=== PATIENT | female | born 1980 | race Caucasian/White ===

== ENCOUNTER 2016-12-01 08:14 | Emergency (ER) | payer OTHER ==
[~2016-12-01] VITALS: Ht 167.6 cm; Wt 106.6 kg
[~2016-12-01 08:14] MED LIST: METOPROLOL SUCC25 MG PO
[2016-12-01] MEDS ORDERED: METOPROLOL SUCC25 MG PO (08:41)
--- NOTE | 2016-12-01 20:33 | EKG ---
[facility] [address] [facility] [place] [address] Signed Normal sinus rhythm Nonspecific ST abnormality Abnormal ECG No previous ECGs available Confirmed by ISHAN PIZANO MD ([id number]) on 12/01/2016 8:33:42 PM Electronically Signed By: ISHAN PIZANO MD 12/01/162032 PATIENT NAME: JAMEY ORDONEZ Electrocardiogram DATE OF : 80 PHYSICIAN: ISHAN PIZANO MD REPORT #: [id number] REPORT IS CONFIDENTIAL AND NOT TO BE RELEASED WITHOUT AUTHORIZATION
--- NOTE | 2016-12-01 20:33 | EKG ---
[facility] [address] [facility] [place] [address] Signed Supraventricular tachycardia Nonspecific ST abnormality Abnormal ECG When compared with ECG of 06-AUG-2016 04:59, No significant change was found Confirmed by ISHAN PIZANO MD ([id number]) on 12/01/2016 8:33:33 PM Electronically Signed By: ISHAN PIZANO MD 12/01/162032 PATIENT NAME: JOSÉ LUISJAMEYVONNE Electrocardiogram DATE OF : 80 PHYSICIAN: ISHAN PIZANO MD REPORT #: [id number] REPORT IS CONFIDENTIAL AND NOT TO BE RELEASED WITHOUT AUTHORIZATION
== END 2016-12-01 09:04 | disposition home or self-care (01) ==
LOC: ED 08:14
DX: I47.1 Supraventricular tachycardia (principal); F17.200 Nicotine dependence, unspecified, uncomplicated; Z98.51 Tubal ligation status; Z91.018 Allergy to other foods; Z88.5 Allergy status to narcotic agent
CPT/HCPCS: 93005; 93010; 96374; 96375; 99284; J0153

== ENCOUNTER 2017-06-02 03:03 | Emergency (ER) | payer OTHER ==
[~2017-06-02] VITALS: Ht 167.6 cm; Wt 106.6 kg
--- OUTSIDE RECORDS SUMMARY | ~2017-06-02 | XMS | Clinical Summary ---
Demographics + + + | Address | [address] | | | [place] [address] | + + + | Home Phone | | + + + | Preferred Language | Unknown | + + + | Marital Status | Single | + + + | Muslim Affiliation | Unknown | + + + | Race | Unknown | + + + | Ethnic Group | Unknown | + + + Author + + + | Author | [facility] | | | and [place] | + + + | Organization | [facility] | | | and [...] Team Providers + +------+ + | Care Business Sales Consultant Name | Role | Phone | + [...] | + + + + + | CERVICAL CANCER | | | | | SCREENING (PAP EVERY | 2 | | | | 3 YEARS 21-64 ) | | | | + + + + + | Vaccine: Influenza | | | | | (Season Ended) | 8 | | | + + + + + Results Not on filefrom Last 3 Months"
--- OUTSIDE RECORDS SUMMARY | ~2017-06-02 | XMS | Clinical Summary ---
Demographics + + + | Address | [address] | | | [place] [address] | + + + | Home Phone | | + + + | Preferred Language | Unknown | + + + | Marital Status | Single | + + + | Adventist Affiliation | Unknown | + + + | Race | Unknown | + + + | Ethnic Group | Unknown | + + + Author + + + | Author | [facility] | | | and [place] | + + + | Organization | [facility] | | | and [...] Team Providers + +------+ + | Care Pourer Name | Role | Phone | + [...]
--- NOTE | 2017-06-02 07:24 | EKG ---
[facility] [address] [place] [address] Signed Normal sinus rhythm Normal ECG When compared with ECG of 02-JUN-2017 03:12, (Unconfirmed) Vent. rate has decreased BY 64 BPM Confirmed by ISHAN PIZANO MD ([id number]) on 06/02/2017 7:24:08 AM Electronically Signed By: ISHAN PIZANO MD 06/02/17 0724 PATIENT NAME: JOSÉ LUISJAMEY KAEL Electrocardiogram DATE OF : 80 PHYSICIAN: ISHAN PIZANO MD REPORT #: [id number] REPORT IS CONFIDENTIAL AND NOT TO BE RELEASED WITHOUT AUTHORIZATION
--- NOTE | 2017-06-02 07:24 | EKG ---
[facility] [address] [facility] [place] [address] Signed Supraventricular tachycardia Otherwise normal ECG When compared with ECG of 01-DEC-2016 08:33, Vent. rate has increased BY 62 BPM Confirmed by ISHAN PIZANO MD ([id number]) on 06/02/2017 7:23:57 AM Electronically Signed By: ISHAN PIZANO MD 06/02/17 0724 PATIENT NAME: JACQUI ORDONEZRENO PrakashKAEL Electrocardiogram DATE OF : 80 PHYSICIAN: ISHAN PIZANO MD REPORT #: [id number] REPORT IS CONFIDENTIAL AND NOT TO BE RELEASED WITHOUT AUTHORIZATION
== END 2017-06-02 04:32 | disposition home or self-care (01) ==
LOC: ED 03:03
DX: I47.1 Supraventricular tachycardia (principal); F17.200 Nicotine dependence, unspecified, uncomplicated; Z88.5 Allergy status to narcotic agent; Z91.018 Allergy to other foods; Z79.899 Other long term (current) drug therapy
CPT/HCPCS: 71045; 80053; 83735; 84484; 85025; 93005; 93010; 96374; 99284; J0153; J7030

== ENCOUNTER 2017-10-14 21:40 | Emergency (ER) | payer OTHER ==
[~2017-10-14] VITALS: Ht 170.2 cm; Wt 113.4 kg
--- OUTSIDE RECORDS SUMMARY | ~2017-10-14 | XMS | Clinical Summary ---
Demographics + + + | Address | [address] | | | [place] [address] | + + + | Home Phone | | + + + | Preferred Language | Unknown | + + + | Marital Status | Single | + + + | Pentecostalism Affiliation | Unknown | + + + | Race | Unknown | + + + | Ethnic Group | Unknown | + + + Author + + + | Author | [facility] | | | and [place] | + + + | Organization | [facility] | | | and [place] | + + + | Address | Unknown | + + + | Phone | Unavailable | + + + Support + + +---------+ + | Name | Relationship | Address | Phone | + + +---------+ + | MURALI ORDONEZ | Unknown | | + + +---------+ + Care Team Providers + +------+ + | Care Cigar Maker Name | Role | Phone | + +------+ + PP | Unavailable | + +------+ + Allergies Not on File Current Medications Not on file Active Problems Not on file Social History + +-------+ +--------+------+ | Tobacco [...] on file | | + + + Plan of Treatment + + + + + | Health Maintenance | Due Date | Last Done | Comments | + + + + + | Vaccine: | | | | | Dtap/Tdap/Td (1 - | 0 | | | | Tdap) | | | | + + + + + | Cervical Cancer | | | | | Screening (Pap) | 1 | | | + + + + + | Vaccine: Influenza | | | | | (#1) | 8 | | | + + + + + Results Not on filefrom Last 3 Months"
--- OUTSIDE RECORDS SUMMARY | ~2017-10-14 | XMS | Clinical Summary ---
Demographics + + + | Address | [address] | | | [place] [address] | + + + | Home Phone | | + + + | Preferred Language | Unknown | + + + | Marital Status | Single | + + + | Nondenominational Affiliation | Unknown | + + + | Race | Unknown | + + + | Ethnic Group | Unknown | + + + Author + + + | Author | [facility] | | | and [place] | + + + | Organization | [facility] | | | and [place] [...] Team Providers + +------+ + | Care Separator Tender Name | Role | Phone | [...]
[2017-10-14] MEDS ORDERED: METOPROLOL TART25 MG PO (23:22)
--- NOTE | 2017-10-15 16:35 | EKG ---
[facility] [address] [facility] [place] [address] Signed Supraventricular tachycardia Abnormal ECG When compared with ECG of 02-JUN-2017 03:15, Vent. rate has increased BY 54 BPM Confirmed by DAVIDA MOORE DO ([id number]) on 10/15/2017 4:35:39 PM Electronically Signed By: DAVIDA MOORE DO 10/15/17 1635 PATIENT NAME: JOSÉ LUISJAMEYVONNE Electrocardiogram DATE OF : 80 PHYSICIAN: DAVIDA MOORE DO REPORT #: [id number] REPORT IS CONFIDENTIAL AND NOT TO BE RELEASED WITHOUT AUTHORIZATION
--- NOTE | 2017-10-15 16:37 | EKG ---
[facility] [address] [facility] [place] [address] Signed Normal sinus rhythm Nonspecific ST abnormality Abnormal ECG When compared with ECG of 14-OCT-2017 21:47, (Unconfirmed) Vent. rate has decreased BY 63 BPM Confirmed by DAVIDA MOORE DO ([id number]) on 10/15/2017 4:37:29 PM Electronically Signed By: DAVIDA MOORE DO 10/15/17 1637 PATIENT NAME: GORDYMARILUJAMEYNNE Electrocardiogram DATE OF : 80 PHYSICIAN: DAVIDA MOORE DO REPORT #: [id number] REPORT IS CONFIDENTIAL AND NOT TO BE RELEASED WITHOUT AUTHORIZATION
== END 2017-10-14 23:30 | disposition home or self-care (01) ==
LOC: ED 21:40
DX: I47.1 Supraventricular tachycardia (principal); F17.200 Nicotine dependence, unspecified, uncomplicated; Z88.5 Allergy status to narcotic agent; Z91.018 Allergy to other foods; Z79.899 Other long term (current) drug therapy
CPT/HCPCS: 80053; 85025; 93005; 93010; 96374; 99285; J0153

== ENCOUNTER 2018-11-28 05:20 | Emergency (ER) | payer OTHER ==
[~2018-11-28] VITALS: Ht 167.6 cm; Wt 110.7 kg
--- OUTSIDE RECORDS SUMMARY | ~2018-11-28 | XMS | Encounter Summary ---
Demographics + + + | Address | [address] | | | [place] [address] | + + + | Home Phone | | + + + | Preferred Language | Unknown | + + + | Marital Status | | + + + | Jainism Affiliation | Unknown | + + + | Race | Unknown | + + + | Ethnic Group | Unknown | + + + Author + + + | Author | [facility] [employer] (Historical as of | | | 10-09-18) | + + + | Organization | [facility] (Historical as of | | | 10-09-18) | + + + | Address | Unknown | + + + | Phone | Unavailable | + + + Support + + +---------+ + | Name | Relationship | Address | Phone | + + +---------+ + | Skye Higgins | ECON | Unknown | | + + +---------+ + | Eliud Huitron | ECON | Unknown | | + + +---------+ + Care Team Providers + +------+ + | Care Welder Shielded Metal Arc Name | Role | Phone | + +------+ + | Tiffany Lane MD | PCP | | + +------+ + Encounter Details +--------+ + + + + | Date | Type | Department | Care Team | Description | +--------+ + + + + | 09/28/ | Documentati | CINDY Gambell | Arthur Hubbard, | | | 2018 | on Only | Cardiology [facility] | [address] | | | | | [address] | [facility], | | | | | [place], [place] | [place] [address] | | | | | [phone] | [phone] | | | | | [phone] | | | +--------+ + + + + Social History + +-------+ +--------+------+ | Tobacco Use | Types | Packs/Day | Years | Date | | | | | Used | | + +-------+ +--------+------+ | Never Assessed | | | | | + +-------+ +--------+------+ + + + | Sex Assigned at | Date Recorded | | | | + + + | Not on file | | + + + as of this encounter Plan of Treatment Not on fileas of this encounter Visit Diagnoses Not on filein this encounter"
--- OUTSIDE RECORDS SUMMARY | ~2018-11-28 | XMS | Encounter Summary ---
Demographics + + + | Address | [address] | | | [place] [address] | + + + | Home Phone | | + + + | Preferred Language | Unknown | + + + | Marital Status | | + + + | Islam Affiliation | Unknown | + + + | Race | Unknown | + + + | Ethnic Group | Unknown | + + + Author + + + | Author | [facility] [employer] (Historical as of | | | 10-09-18) | + + + | Organization | [facility] [employer] (Historical as of | | | 10-09-18) [...] Team Providers + +------+ + | Care Almond Blancher Name | Role | Phone | + +------+ + | Tiffany Lane MD | PCP | | + +------+ + Encounter Details +--------+ + + + + | Date | Type | Department | Care Team | Description | +--------+ + + + + | 09/28/ | Documentati | [facility] | Arthur Hubbard, | | | 2018 | on Only | Cardiology [facility] | [address] | | | | | [address] | [facility], | | | | | [place], [place] | [place] [address] | | | | | [address] | [phone] | | | | | [phone] | | | +--------+ + + + [...]
--- OUTSIDE RECORDS SUMMARY | ~2018-11-28 | XMS | Clinical Summary ---
Demographics + + + | Address | [address] | | | [place] [address] | + + + | Home Phone | | + + + | Preferred Language | Unknown | + + + | Marital Status | | + + + | Worship Affiliation | Unknown | + + + | Race | Unknown | + + + | Ethnic Group | Unknown | + + + Author + + + | Author | [facility] [employer] (Historical as of | | | 10-09-18) | + + + | Organization | [facility] [employer] (Historical as of | | | 10-09-18) [...] Team Providers + +------+ + | Care Microsoft Application Developer Name | Role | Phone | + +------+ + | Tiffany Lane MD | PP | | + +------+ + Allergies Not on File Current Medications Not on file Active Problems Not on file Encounters +--------+ + + + + | Date | Type | Specialty | Care Team | Description | +--------+ + + + + | 09/28/ | Documentati | | Arthur Hubbard, | | | 2019 | on Only | | MD | | +--------+ + + + + from Last 3 Months Social History + +-------+ +--------+------+ | Tobacco [...]
--- OUTSIDE RECORDS SUMMARY | ~2018-11-28 | XMS | Clinical Summary ---
Demographics + + + | Address | [address] | | | [place] [address] | + + + | Home Phone | | + + + | Preferred Language | Unknown | + + + | Marital Status | Single | + + + | Religion Affiliation | Unknown | + + + | Race | Unknown | + + + | Ethnic Group | Unknown | + + + Author + + + | Author | [facility] | | | and [place] | + + + | Organization | [facility] | [...] | + + +---------+ + | Eliud Ordonez | ECON | Unknown | | + + +---------+ + Care Team Providers + +------+ + | Care Custom Motorcycle Painter Name | Role | Phone | + +------+ + | Tiffany Lane MD | PCP | | + +------+ + Allergies Not on File Medications Not on file Active Problems Not [...] recent travel history available. | + + Last Filed Vital Signs Not on file Plan of Treatment +--------+---------+ + + + | Date | Type | Specialty | Care Team | Description | +--------+---------+ + + + | 11/30/ | Office | Cardiology | Arthur Hubbard, | | | 2018 | Visit | | MD [address] | | | | | | [place], | | | | | | [place] [address] | | | | | | [phone] | | | | | | | | +--------+---------+ + + + + + + + + | Health [...] + Results Not on filefrom Last 3 Months Insurance + +--------+ +--------+ +---------+--------+ | Payer | Benefi | Subscriber | Effect | Phone | Address | Type | | | t Plan | ID | shalini | | | | | | / | | Dates | | | | | | Group | | | | | | + +--------+ +--------+ +---------+--------+ | [employer] | [employer] | [id number] | | [phone] | | Medica | | MEDICAID HMO | HEALTH | | [id number] | 1 | | id | | | MDCD | | esent | | | | | | [place] | | | | | | + +--------+ +--------+ +---------+--------+ + +--------+ +--------+ + + | Guarantor Name | Accoun | Relation to | Date | Phone | Billing Address | | | t Type | Patient | of | | | | | | | | | | + +--------+ +--------+ + + | Jaqueline Ordonez Y | Person | Self | 08/01/ | | 1820 | | | al/Fam | | 1981 | [phone] | [place] [address] | | | pinky | | | 0 (Home) | | + +--------+ +--------+ + + Advance Directives Patient has advance care planning documents on file. For more information, please contact:[facility] [place] [address]"
--- OUTSIDE RECORDS SUMMARY | ~2018-11-28 | XMS | Clinical Summary ---
Demographics + + + | Address | [address] | | | [place] [address] | + + + | Home Phone | | + + + | Preferred Language | Unknown | + + + | Marital Status | | + + + | Rastafari Affiliation | Unknown | + + + | Race | Unknown | + + + | Ethnic Group | Unknown | + + + Author + + + | Author | [facility] [employer] (Historical as of | | | 10-09-18) | + + + | Organization | [facility] [employer] (Historical as of | | | 10-09-18) [...] Team Providers + +------+ + | Care Acute Care Nursing Assistant Name | Role | Phone | + [...]
--- OUTSIDE RECORDS SUMMARY | ~2018-11-28 | XMS | Clinical Summary ---
Demographics + + + | Address | [address] | | | [place] [address] | + + + | Home Phone | | + + + | Preferred Language | Unknown | + + + | Marital Status | Single | + + + | Shinto Affiliation | Unknown | + + + | Race | Unknown | + + + | Ethnic Group | Unknown | + + + Author + + + | Author | [facility] | | | and [place] | + + + | Organization | [facility] | | | and [place] | [...] Team Providers + +------+ + | Care Resolution Expert Name | Role | Phone | + [...] | | | | | | [place] [address] | | | | | | [phone] | | | | | | | [...] | [employer] | [employer] | [id number] | | [phone] | | Medica | [...] | | al/Fam | | 1981 | [phone] | [place] [address] | | | pinky | | | 0 (Home) | | + +--------+ +--------+ + + Advance Directives Patient has advance care planning documents on file. For more information, please contact:[facility] [address]"
[~2018-11-28 05:20] MED LIST changes: +METOPROLOL TART25 MG PO
--- OUTSIDE RECORDS SUMMARY | 2018-11-28 05:22 | XMS ---
PreManage Notification: JAMEY ORDONEZ Security Transportation Dispatcher Events No recent Security Events currently on file CRITERIA MET - [facility] - Has Care Guidelines CARE PROVIDERS SHERITA GIL Internal Medicine 09/28/2018-Current [employer] PHONE: [phone] [place] has no Care Guidelines for this patient. Care History Medical/Surgical 09/28/2018 [facility] - Patient is currently established with [facility]. If patient is seen in the ED during business hours. Please contact [facility] at [facility]. Care Recommendation: This patient has had 5 or more Emergency Department visits in the last 12 months.\T\nbsp; Patient requires education on the scope and purpose of the ED as an acute care provider not a Primary Care Provider and should not be utilized for chronic conditions.\T\nbsp; These are guidelines and the provider should exercise clinical judgment when providing care. E.D. VISIT COUNT (12 MO.) 3 [facility] TOTAL 3 NOTE: Visits indicate total known visits. ED/UCC VISIT TRACKING (12 MO.) 11/28/2018 05:21 [facility] [place] TYPE: Emergency COMPLAINT: - SOB 09/28/2018 05:53 [facility] [place] TYPE: Emergency COMPLAINT: - SVT ATTACK DIAGNOSES: - Nicotine dependence, unspecified, uncomplicated - Other director long term care (current) drug therapy - Allergy status to narcotic agent status - Supraventricular tachycardia - Allergy to other foods - Tachycardia, unspecified 09/06/2018 02:09 [facility] [place] TYPE: Emergency COMPLAINT: - SOB, RAPID HEART RATE DIAGNOSES: - Allergy to other foods - Allergy status to narcotic agent status - Nicotine dependence, unspecified, uncomplicated - Supraventricular tachycardia - Tachycardia, unspecified - Other director long term care (current) drug therapy INPATIENT VISIT TRACKING (12 MO.) No inpatient visits to display in this time frame [email or web address]
[2018-11-28] MEDS ORDERED: VERAPAMIL HCL80 MG PO (05:28)
[2018-11-28] MEDS ORDERED: PREDNISONE20 MG PO (06:52)
--- NOTE | 2018-11-28 15:28 | EKG ---
[facility] [address] [facility] [place], [place] [address] Signed Sinus tachycardia Right atrial enlargement Nonspecific ST and T wave abnormality Abnormal ECG When compared with ECG of 28-SEP-2018 06:14, No significant change was found Confirmed by DAVIDA MOORE DO ([id number]) on 11/28/2018 3:28:03 PM Electronically Signed By: DAVIDA MOORE DO 11/28/18 1528 PATIENT NAME: JAMEY ORDONEZ Electrocardiogram DATE OF : 80 PHYSICIAN: DAVIDA MOORE DO REPORT #: [id number] REPORT IS CONFIDENTIAL AND NOT TO BE RELEASED WITHOUT AUTHORIZATION
== END 2018-11-28 07:16 | disposition home or self-care (01) ==
LOC: ED 05:20
DX: J20.9 Acute bronchitis, unspecified (principal); F17.200 Nicotine dependence, unspecified, uncomplicated; Z88.5 Allergy status to narcotic agent; Z88.8 Allergy status to other drugs, medicaments and biological substances; Z79.899 Other long term (current) drug therapy
CPT/HCPCS: 71045; 80053; 83735; 84484; 85025; 87502; 93005; 93010; 94640; 99285-25; 99406; J7512

== ENCOUNTER 2019-01-04 14:52 | Emergency (ER) | payer OTHER ==
[~2019-01-04] VITALS: Ht 167.6 cm; Wt 104.3 kg
--- OUTSIDE RECORDS SUMMARY | ~2019-01-04 | XMS | Encounter Summary ---
Demographics + + + | Address | [address] | | | [place] [address] | + + + | Home Phone | | + + + | Preferred Language | Unknown | + + + | Marital Status | Single | + + + | Adventism Affiliation | Unknown | + + + | Race | Unknown | + + + | Ethnic Group | Unknown | + + + Author + + + | Author | [facility] | | | and [place] | + + + | Organization | [facility] | | | and [place] | + + + | Address | Unknown | + + + | Phone | Unavailable | + + + Support + + +---------+ + | Name | Relationship | Address | Phone | + + +---------+ + | Litzy Huitron | ECON | Unknown | | + + +---------+ + | Skye Gisela | ECON | Unknown | | + + +---------+ + | Eliud Huitron | ECON | Unknown | | + + +---------+ + Care Team Providers + +------+ + | Care Lap Runner Name | Role | Phone | + +------+ + PCP | Unavailable | + +------+ + Encounter Details +--------+ + + + + | Date | Type | Department | Care Team | Description | +--------+ + + + + | 05/24/ | Hospital | [facility] | Bryan Dumas, | | | 1998 | Encounter | MED CTR GENERIC OP | [id number] | | | | | CONV DEPT [address] | [place] | | | | | [place], | [place] [address] | | | | | [place] [address] | [phone] | | | | | [phone] | | | +--------+ + + + [...] on file | | + + + + + + + | Job Start Date | Occupation | Industry | + + + + | Not on file | Not on file | Not on file | + + + + + + + + | Travel History | Travel Start | Travel End | + + + + + + | No recent travel history available. | + + documented as of this encounter Plan of Treatment +--------+---------+ + + + | Date | Type | Specialty | Care Team | Description | +--------+---------+ + + + | 02/09/ | Office | Cardiology | Mino Dawson | | | 2018 | Visit | | MD [address] | | | | | | [place] [address] | | | | | | [place] | | | | | | [id number] | | | | | | | | +--------+---------+ + + + | 03/15/ | Office | Cardiology | Arthur Hubbard, | | | 2019 | Visit | | MD [address] | | | | | | [place] | | | | | [place] [address] | | | | | | [phone] | | | | | | | | +--------+---------+ + + + documented as of this encounter Visit Diagnoses Not on filedocumented in this encounter"
--- OUTSIDE RECORDS SUMMARY | ~2019-01-04 | XMS | Clinical Summary ---
Demographics + + + | Address | [address] | | | [place] [address] | + + + | Home Phone | | + + + | Preferred Language | Unknown | + + + | Marital Status | | + + + | Gnosticist Affiliation | Unknown | + + + | Race | Unknown | + + + | Ethnic Group | Unknown | + + + Author + + + | Author | [facility] (Historical as of | | | 10-09-18) | + + + | Organization | [facility] (Historical as of | | | 10-09-18) [...] Team Providers + +------+ + | Care Automotive Software Engineer Name | Role | Phone | + +------+ + | Tiffany Lane MD | PP | | + +------+ + Allergies Not on [...] | | | | | (#1) | 9 | | | + + + + + Results Not on filefrom Last 3 Months"
--- OUTSIDE RECORDS SUMMARY | ~2019-01-04 | XMS | Encounter Summary ---
Demographics + + + | Address | [address] | | | [place] [address] | + + + | Home Phone | | + + + | Preferred Language | Unknown | + + + | Marital Status | Single | + + + | Jewish Affiliation | Unknown | + + + | Race | Unknown | + + + | Ethnic Group | Unknown | + + + Author + + + | Author | [facility] | | | and [place] | + + + | Organization | [facility] | | | and [place] | [...] Team Providers + +------+ + | Care Converter Skimmer Name | Role | Phone | + +------+ + | Tiffany Lane MD | PCP | | + +------+ + Reason for Visit + + + | Reason | Comments | + + + | Irregular Heart Beat | | + + + Encounter Details +--------+ + + + + | Date | Type | Department | Care Team | Description | +--------+ + + + + | 01/04/ | Telephone | [facility] | Celine Giraldo, | Irregular Heart Beat | | 2018 | | CARDIOLOGY AGUSTIN Cifuentes RN | | | | | [address] | | | | | | [facility] [place] | | | | | | [address] | | | | | | [phone] | | | +--------+ + + + + Social History + + + +--------+------+ | Tobacco Use | Types | Packs/Day | Years | Date | | | | | Used | | + + + +--------+------+ | Current Every Day | Cigarettes | 0.75 | 15 | | | Smoker | | | | | + + + +--------+------+ + +---+---+---+ | Smokeless Tobacco: | | | | | Never Used | | | | + +---+---+---+ + + +---------+ + | Alcohol Use | Drinks/Week | oz/Week | Comments | + + +---------+ + | Never | | | | + + +---------+ + + + + + | Alcohol Habits | Answer | Date Recorded | + + + + | How often do you have a drink containing | Never | 11/30/2018 | | alcohol? | | | + + + + | How many drinks containing alcohol do you | Not asked | | | have on a typical day when you are | | | | drinking? | | | + + + + | How often do you have six or more drinks on | Not asked | | | one occasion? | | | + + + + + + + | Sex Assigned at [...] [place] | | | | | | [address] | | | | | | | | +--------+---------+ + + + | 03/15/ | Office | Cardiology | Arthur Hubbard, | | | 2019 | Visit | | MD [address] | | | | | | [place], | | | | | | [place] [address] | | | | | | [phone] | | | | | | | | +--------+---------+ + + + documented as of this encounter Visit Diagnoses Not on filedocumented in this encounter"
--- OUTSIDE RECORDS SUMMARY | ~2019-01-04 | XMS | Encounter Summary ---
Demographics + + + | Address | [address] | | | [place] [address] | + + + | Home Phone | | + + + | Preferred Language | Unknown | + + + | Marital Status | Single | + + + | Presybeterian Affiliation | Unknown | + + + | Race | Unknown | + + + | Ethnic Group | Unknown | + + + Author + + + | Author | [facility] | | | and [place] | + + + | Organization | [facility] | | | and [place] | [...] Team Providers + +------+ + | Care Health And Wellness Coach Name | Role | Phone | + +------+ + PCP | Unavailable | + +------+ + Encounter Details +--------+ + + + + | Date | Type | Department | Care Team | Description | +--------+ + + + + | 12/22/ | Hospital | [facility] | Lane, | Cervicalgia | | 2008 | Encounter | CONVERSION [address] | Tiffany Carrero MD | | | | | [address] | [address] [place] [address] | | | | | [place], [place] | [place] [address] | | | | | [address] | [phone] | | | | | [phone] | | | +--------+ + + + [...] [place] | | | | | | [address] | | | | | | | | +--------+---------+ + + + | 03/15/ | Office | Cardiology | Arthur Hubbard, | | | 2019 | Visit | | MD [address] | | | | | | [place] | | | | | [place] [address] | | | | | | [phone] | | | | | | | | +--------+---------+ + + + documented as of this encounter Visit Diagnoses + + | Diagnosis | + + | Cervicalgia | + + documented in this encounter"
--- OUTSIDE RECORDS SUMMARY | ~2019-01-04 | XMS | Encounter Summary ---
Demographics + + + | Address | [address] | | | [place] [address] | + + + | Home Phone | | + + + | Preferred Language | Unknown | + + + | Marital Status | Single | + + + | Temple Affiliation | Unknown | + + + | Race | Unknown | + + + | Ethnic Group | Unknown | + + + Author + + + | Author | [facility] | | | and [place] | + + + | Organization | [facility] | | | and [...] Team Providers + +------+ + | Care Roving Can Tender Name | Role | Phone | + +------+ + PCP | Unavailable | + +------+ + Encounter Details +--------+ + + + + | Date | Type | Department | Care Team | Description | +--------+ + + + + | 09/25/ | Emergency | [facility] | JoanneJanis Deni, | | | 2005 | | MEDICAL CENTER | [address] | | | | | EMERGENCY CENTER | [place], [place] | | | | | [address] | [address] | | | | | [place], [place] | | | | | | [address] | | | | | | [phone] | | | +--------+ + + + [...] [place] | | | | | | [address] | | | | | | | | +--------+---------+ + + + | 03/15/ | Office | Cardiology | Arthur Hubbard, | | | 2019 | Visit | | MD [address] | | | | | | [place] | | | | | | [place] [address] | | | | | | [phone] | | | | | | | | +--------+---------+ + + + documented as of this encounter Visit Diagnoses Not on filedocumented in this encounter"
--- OUTSIDE RECORDS SUMMARY | ~2019-01-04 | XMS | Clinical Summary ---
Demographics + + + | Address | [address] | | | [place] [address] | + + + | Home Phone | | + + + | Preferred Language | Unknown | + + + | Marital Status | | + + + | Church Affiliation | Unknown | + + + | Race | Unknown | + + + | Ethnic Group | Unknown | + + + Author + + + | Author | [facility] (Historical as of | | | 10-09-18) | + + + | Organization | [facility] (Historical as of | | | 10-09-18) [...] Team Providers + +------+ + | Care Hospitality Ambassador Name | Role | Phone | + [...]
--- OUTSIDE RECORDS SUMMARY | ~2019-01-04 | XMS | Encounter Summary ---
Demographics + + + | Address | [address] | | | [place] [address] | + + + | Home Phone | | + + + | Preferred Language | Unknown | + + + | Marital Status | Single | + + + | Mandaeism Affiliation | Unknown | + + + | Race | Unknown | + + + | Ethnic Group | Unknown | + + + Author + + + | Author | [facility] | | | and [place] | + + + | Organization | [facility] | | | and [place] [...] Team Providers + +------+ + | Care Disaster Recovery Manager Name | Role | Phone | + +------+ + PCP | Unavailable | + +------+ + Encounter Details +--------+ + + + + | Date | Type | Department | Care Team | Description | +--------+ + + + + | 05/24/ | Hospital | [facility] | Bryan Dumas, | | | 1998 | Encounter | MED CTR GENERIC OP | [address] | | | | | CONV DEPT [address] | [place] | | | | | [place], | [place] [address] | | | | | [place] [address] | [phone] | | | | | [phone] | | | +--------+ + + + [...] | 2018 | Visit | | MD Knig Morris | | | | | | [place] [address] | | | | | | [place] | | | | | | [id number] | | | | | | | | +--------+---------+ + + + | 03/15/ | Office | Cardiology | Arthur Hubbard, | | | 2019 | Visit | | MD [address] | | | | | | [place] | | | | | [place] [address] | | | | | | [phone] | | | | | | | | +--------+---------+ + + + documented as of this encounter Visit Diagnoses Not on filedocumented in this encounter"
--- OUTSIDE RECORDS SUMMARY | ~2019-01-04 | XMS | Encounter Summary ---
Demographics + + + | Address | [address] | | | [place] [address] | + + + | Home Phone | | + + + | Preferred Language | Unknown | + + + | Marital Status | Single | + + + | Yazidism Affiliation | Unknown | + + + | Race | Unknown | + + + | Ethnic Group | Unknown | + + + Author + + + | Author | [facility] | | | and [place] | + + + | Organization | [facility] | | | and [place] [...] Team Providers + +------+ + | Care Nuclear Medicine Medical Director Name | Role | Phone | + [...] + + | 01/04/ | Telephone | [facility] | Celine Giraldo, | Irregular Heart Beat | | 2018 | | CARDIOLOGY AGUSTIN Cifuentes RN | | | | | [address] | | | | | | [facility] [place] | | | | | | [address] | | | | | | [phone] | | | +--------+ + + + [...] [place] | | | | | | [address] | | | | | | | | +--------+---------+ + + + | 03/15/ | Office | Cardiology | Arthur Hubbard, | | | 2019 | Visit | | MD [address] | | | | | | [place], | | | | | | [place] [address] | | | | | | [phone] | | | | | | | | +--------+---------+ + + + documented as of this encounter Visit Diagnoses Not on filedocumented in this encounter"
--- OUTSIDE RECORDS SUMMARY | ~2019-01-04 | XMS | Encounter Summary ---
Demographics + + + | Address | [address] | | | [place] [address] | + + + | Home Phone | | + + + | Preferred Language | Unknown | + + + | Marital Status | Single | + + + | Jain Affiliation | Unknown | + + + | Race | Unknown | + + + | Ethnic Group | Unknown | + + + Author + + + | Author | [facility] | | | and [place] | + + + | Organization | [facility] | | | and [place] [...] Team Providers + +------+ + | Care Configuration Management Consultant Name | Role | Phone | + +------+ + PCP | Unavailable | + +------+ + Encounter Details +--------+ + + + + | Date | Type | Department | Care Team | Description | +--------+ + + + + | 12/22/ | Hospital | [facility] | Lane, | Cervicalgia | | 2008 | Encounter | CONVERSION [address] | Tiffany Carrero MD | | | | | [address] | [address] [place] [address] | | | | | [place], [place] | [place] [address] | | | | | [address] | [phone] | | | | | [phone] | | | +--------+ + + + [...] [place] | | | | | | [address] | | | | | | | | +--------+---------+ + + + | 03/15/ | Office | Cardiology | Arthur Hubbard, | | | 2019 | Visit | | MD [address] | | | | | | [place] | | | | | [place] [address] | | | | | | [phone] | | | | | | | | +--------+---------+ + + + documented as of this encounter Visit Diagnoses + + | Diagnosis | + + | Cervicalgia | + + documented in this encounter"
--- OUTSIDE RECORDS SUMMARY | ~2019-01-04 | XMS | Encounter Summary ---
Demographics + + + | Address | [address] | | | [place] [address] | + + + | Home Phone | | + + + | Preferred Language | Unknown | + + + | Marital Status | Single | + + + | Mosque Affiliation | Unknown | + + + | Race | Unknown | + + + | Ethnic Group | Unknown | + + + Author + + + | Author | [facility] | | | and [place] | + + + | Organization | [facility] | | | and [place] [...] Team Providers + +------+ + | Care Casino Porter Name | Role | Phone | + +------+ + PCP | Unavailable | + +------+ + Encounter Details +--------+ + + + + | Date | Type | Department | Care Team | Description | +--------+ + + + + | 03/16/ | Hospital | [facility] | Gato Dinero, | | | 1998 | Encounter | MED CTR GENERIC OP | MD | | | | | CONV DEPT [address] | | | | | | [place], | | | | | | [place] [address] | | | | | | [phone] | | | +--------+ + + + [...] [place] | | | | | | [address] | | | | | | | | +--------+---------+ + + + | 03/15/ | Office | Cardiology | Arthur Hubbard, | | | 2019 | Visit | | MD [address] | | | | | | [place] | | | | | | [place] [address] | | | | | | [phone] | | | | | | | | +--------+---------+ + + + documented as of this encounter Visit Diagnoses Not on filedocumented in this encounter"
--- OUTSIDE RECORDS SUMMARY | ~2019-01-04 | XMS | Encounter Summary ---
Demographics + + + | Address | [address] | | | [place] [address] | + + + | Home Phone | | + + + | Preferred Language | Unknown | + + + | Marital Status | Single | + + + | Judaism Affiliation | Unknown | + + + | Race | Unknown | + + + | Ethnic Group | Unknown | + + + Author + + + | Author | [facility] | | | and [place] | + + + | Organization | [facility] | | | and [place] [...] Team Providers + +------+ + | Care Kiln Operator Name | Role | Phone | + +------+ + | Tiffany Lane MD | PCP | | + +------+ + Reason for Referral Evaluate & Treat (Routine) + + + + + + + | Status | Reason | Specialty | Diagnoses / | Referred By | Referred To | | | | | Procedures | Contact | Contact | + + + + + + + | Authorized | Specialty | Cardiology | Diagnoses | Haydee, | Bernard Ep | | | Services | | SVT | Arthur Cheema, | Cardiology | | | Required | | (supraventri | MD [address] | | | | | cular | [address] | DR | | | | | tachycardia) | [place] | [place], [place] | | | | | (HCC) | [place], [place] | [address] | | | | | | [address] | Phone: | | | | | | Phone: | [phone] | | | | | | [phone] | Fax: | | | | | | Fax: | [phone] | | | | | | [phone] | | + + + + + + + Reason for Visit + + + | Reason | Comments | + + + | New Patient | SVT | + + + Evaluate & Treat (Routine) + +--------+ + + + + | Status | Reason | Specialty | Diagnoses / | Referred By | Referred To | | | | | Procedures | Contact | Contact | + +--------+ + + + + | Authorized | | Cardiology | Diagnoses | Mino, | Haydee, | | | | | | MATT [place] | Arthur Cheema MD | | | | | Supraventric | [address] | | | | | ular | [place] | [address] | | | | | tachycardia | [place] [address] | [place] | | | | | (HCC) | [place], | [place], [place] | | | | | Supraventric | [place] [address] | [address] Phone: | | | | | ular | Phone: | [phone] | | | | | tachycardia | [phone] | Fax: | | | | | (HCC) | Fax: | [phone] | | | | | Procedures | [phone] | | | | | | Consult | | | + +--------+ + + + + Encounter Details +--------+---------+ + + + | Date | Type | Department | Care Team | Description | +--------+---------+ + + + | 11/30/ | Office | [facility] | Arthur Hubbard, | SVT | | 2019 | Visit | CARDIOLOGY ASAEL | [address] | (supraventricular | | | | [address] | [place], | tachycardia) (HCC) | | | | [address] [place] | [place] [address] | (Primary Dx); | | | | [address] | [phone] | Tobacco abuse | | | | [phone] | | | +--------+---------+ + + + Social History + + [...] | | | + +---+---+---+ + + | Tobacco Cessation: Ready to Quit: Yes; Counseling Given: Yes | + + + + +---------+ + | Alcohol Use [...] + + documented as of this encounter Last Filed Vital Signs + + + + + | Vital Sign | Reading | Time Taken | Comments | + + + + + | Blood Pressure | 124/74 | 11/30/2018 9:51 AM | RA | | | | PDT | | + + + + + | Pulse | 105 | 11/30/2018 9:49 AM | | | | | PDT | | + + + + + | Temperature | - | - | | + + + + + | Respiratory Rate | - | - | | + + + + + | Oxygen Saturation | 87% | 11/30/2018 9:49 AM | | | | | PDT | | + + + + + | Inhaled Oxygen | - | - | | | Concentration | | | | + + + + + | Weight | 104.5 kg (230 lb 4.8 | 11/30/2018 9:49 AM | | | | oz) | PDT | | + + + + + | Height | 167.6 cm (5' 6") | 11/30/2018 9:49 AM | | | | | PDT | | + + + + + | Body Mass Index | 37.17 | 11/30/2018 9:49 AM | | | | | PDT | | + + + + + documented in this encounter Progress Notes Arthur Hubbard MD - 11/30/2018 9:40 AM PDTFormatting of this note might be different fro m the original. Subjective: Patient ID: Jauqeline Huitron is a 38 y.o. female. HPI Patient's medications, allergies, past medical, surgical, social and family histories were obtained and reviewed as appropriate. Jaqueline, accompanied by her mother (who also has a history of PSVT) came to the office today to establish herself with [facility]. She developed PSVT in 2007, and has been treated with adenosine multiple times since then, 7 times in the last 2 years since she moved back to [place], and 5 or 6 times prior to that, when she lived in [place]. She saw a parking ramp attendant in [place] in 2000 01-2012 before she came to this area. She had b een on metoprolol 25 mg daily, but was unable to tolerate higher doses due to hypotension. She was seen in the [facility] ER 10/14/2017 for another episode, and her EKG was r eviewed, showing PSVT at a rate of 151 bpm, with a subsequent tracing showing she had conver madelin to sinus rhythm. She had another episode approximately 1 month ago. Her metoprolol was changed to another medication, which she cannot recall but believes it starts with "V" that she is supposed to take 3 times per day (I assume this is verapamil), but she often forgets to take 1 or more doses per day. He has been instructed in vagal maneuvers previously, but states that this is only worked once, and she is psychologically unable to make herself put her face in ice water, which, statistically, is the most effective vagal maneuver. In [facility], EPS with a radiofrequency ablation was discussed, but because of childcare issues, she could never schedule it. Her mother is now available to watch her children, and I referred her to our electrophysiologists for an evaluation. I think she would be a good candidate f or an ablation. I will see her back in a few months. Past Medical History: Diagnosis Date PSVT (paroxysmal supraventricular tachycardia) ([facility]) 2007 Tobacco abuse Past Surgical History: Procedure Laterality Date CHOLECYSTECTOMY 2012 index finger Right 1998 TONSILLECTOMY AND ADENOIDECTOMY 1986 TUBAL LIGATION 2013 Family History Problem Relation Age of Onset PSVT Mother Heart surgery Father Heart transplant Father Heart attack Paternal Grandmother Heart attack Paternal Grandfather COPD Maternal Grandmother Heart disease Maternal Grandmother Alzheimer's disease Maternal Grandfather Social History Socioeconomic History Marital status: Single Spouse name: Not on file Number of children: Not on file Years of education: Not on file Highest education level: Not on file Social Needs Financial resource strain: Not on file Food insecurity - worry: Not on file Food insecurity - inability: Not on file Transportation needs - medical: Not on file Transportation needs - non-medical: Not on file Occupational History Not on file Tobacco Use Smoking status: Current Every Day Smoker Types: Cigarettes Smokeless tobacco: Never Used Substance and Sexual Activity Alcohol use: Never Frequency: Never Drug use: Not Currently Types: Marijuana Sexual activity: Not on file Other Topics Concern Not on file Social History Narrative Not on file Allergies Allergen Reactions Percocet (Oxycodone) Nausea And Vomiting Intolerance No active intolerances/contraindications No current outpatient medications on file. No current facility-administered medications for this visit. ROS CONSTITUTIONAL: Almost 50 lb weight decrease with dieting in the last year, has bronchitis currently with a recent fever 101.7, chills, occasional night sweats, c/o significant fatig ue with her current illness NEUROLOGIC: No history of CVA, TIA, has occasional Migraines, denies seizures, syncope. N o dizziness, has had mild lightheadedness with her bronchitis. No numbness, tingling, parest hesias. EYES: No amaurosis, diplopia, recent visual changes, cataracts or glaucoma ENT: No hearing loss, has occasional tinnitus, no significant epistaxis, dysphagia ENDOCRINE: No history of diabetes. No history of thyroid disorders or other endocrine prob lems. No excessive hunger, thirst. PULMONARY/SLEEP: c/o dyspnea and cough productive of clear to light yellow sputum with her current bronchitis, denies orthopnea, had paroxysmal nocturnal dyspnea Thursday when her bron chitis began, with O2 sat 88% in the [place] ER. She has a remote history of asthma in childhood, resolved, denies emphysema. She had community acquired Pneumonia 2017. Denies sig nificant snoring, daytime somnolence. Sleep is refreshing. CARDIOVASCULAR: Denies chest pain, pressure or discomfort. No history of CAD. No history of heart failure. She has a history of PSVT with recurrent episodes since 2007, Palpitations as above. No history of a heart murmur, rheumatic fever. No history of hypertension (exce pt during ), no h/o hyperlipidemia. She has occasional dependent pedal edema, no c laudication symptoms. No h/o an AAA. GASTROINTESTINAL: No recent abdominal pain, nausea, vomiting, has occasional diarrhea sinc e her cholecystectomy. Denies PUD, melena, hematochezia, hepatitis. RENAL/: No history of kidney disease. No dysuria, hematuria, urinary urgency, hesitancy . 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 HEMATOLOGY/ONCOLOGY: No h/o bleeding disorders, DVT, PE. She notes easy bruisability, wi thout significant bleeding. No history of anemia, transfusions. No history of cancer. MUSCULOSKELETAL: No myalgias, arthralgias. No history of rheumatologic or autoimmune dise ases. CUTANEOUS: No rashes, pruritus, lesions. PSYCHIATRIC: No history of depression, anxiety or other psychiatric problems. Objective: BP 124/74 Comment: RA | Pulse 105 | Ht 1.676 m (5' 6") | Wt 104.5 kg (230 lb 4.8 oz) | S pO2 (!) 87% | BMI 37.17 kg/m BP 126/84 left arm PHYSICAL EXAM GENERAL: Obese, well developed, well nourished young woman, in no distress. Meaghan ears approximately stated age. HEENT: Normocephalic, atraumatic. EYES: PERRL, sclerae anicteric, no xanthelsasmas MOUTH: Oral mucosae moist, dentition adequate, no lesions noted NECK: No JVD, lymphadenopathy, thyromegaly, bruits. Carotid pulses are 2+ bilaterally LUNGS: Clear bilaterally, with no rales, rhonchi, has mild expiratory wheezing noted, resp irations unlabored, expiration is slightly prolonged HEART: Nondisplaced PMI, regular rate and rhythm, S1, S2 normal. No murmurs, rubs or gall ops noted. ABDOMEN: Soft, nontender, no organomegaly, masses or bruits. Bowel sounds are normal in a ll 4 quadrants. The abdominal aortic pulsation is not palpable. EXTREMITIES: No edema. Radial pulses 2+ bilaterally. Femoral pulses are 2+ bilaterally wi thout bruits. DP and PT pulses are 2+ bilaterally. SKIN: Warm and dry, capillary refill is normal, no lesions. NEUROLOGIC: Awake, alert and oriented x 3. No focal motor deficits. PSYCHIATRIC: Appropriate, affect appears normal EKG: Normal sinus rhythm, rate 91, possible biatrial enlargement, otherwise normal tracing Assessment: Jaqueline was seen today for new patient. Diagnoses and all orders for this visit: SVT (supraventricular tachycardia) ([facility]) - ECG 12 lead PSVT (paroxysmal supraventricular tachycardia) ([facility]) Tobacco abuse Plan: Refer for an EP evaluation and RFA documented in this encounter Plan of Treatment +--------+---------+ + [...] [place] | | | | | | [id number] | | | | | | | | +--------+---------+ + + + | 03/15/ | Office | Cardiology | Arthur Hubbard, | | | 2019 | Visit | | MD [address] | | | | | | [place] | | | | | [place] [address] | | | | | | [phone] | | | | | | | | +--------+---------+ + + + + + +--------+ + + | Name | Type | Priori | Associated Diagnoses | Order Schedule | | | | ty | | | + + +--------+ + + | Ambulatory Referral | Outpatient | Routin | SVT | Ordered: 11/30/2018 | | to [facility] EP | Referral | e | (supraventricular | | | Cardiology | | | tachycardia) (HCC) | | | (Electrophysiology) | | | | | + + +--------+ + + documented as of this encounter Procedures + +--------+ + + + | Procedure Name | Priori | Date/Time | Associated Diagnosis | Comments | | | ty | | | | + +--------+ + + + | ECG 12 LEAD | Routin | 11/30/2018 | SVT | Results for this | | | e | 9:54 AM | (supraventricular | procedure are in the | | | | PDT | tachycardia) ([facility]) | results section. | + +--------+ + + + documented in this encounter Results ECG 12 lead (11/30/2018 9:54 AM PDT) + + + + + + | Component | Value | Ref Range | Performed | Pathologist | | | | | At | Signature | + + + + + + | VENTRICULAR | 91 | BPM | [facility] | | | RATE EKG | | | | | + + + + + + | ATRIAL RATE | 91 | BPM | [facility] | | + + + + + + | P-R | 154 | ms | [facility] | | | INTERVAL | | | | | + + + + + + | QRS | 74 | ms | [facility] | | | DURATION | | | | | + + + + + + | Q-T | 360 | ms | [facility] | | | INTERVAL | | | | | + + + + + + | Q-T | 442 | ms | [facility] | | | INTERVAL | | | | | | (CORRECTED) | | | | | + + + + + + | P WAVE AXIS | 80 | degrees | [facility] | | + + + + + + | QRS AXIS | 69 | degrees | [facility] | | + + + + + + | T AXIS | 49 | degrees | [facility] | | + + + + + + | INTERPRETAT | Normal sinus | | [facility] | | | ION TEXT | rhythmBiatrial | | | | | | enlargementAbnormal | | | | | | ECGNo previous ECGs | | | | | | availablePlease refer to | | | | | | Providers office visit | | | | | | note for Providers | | | | | | Interpretation.Confirmed | | | | | | by [facility] [place] Read Only, | | | | | | [facility] [place] ([id number]), | | | | | | editor continuity and script Jeremias Coy | | | | | | ([id number]) on 11/30/2018 | | | | | | 10:19:01 AM | | | | + + + + + + + + | Specimen | + + | | + + + + + | Narrative | Performed At | + + + | | | + + + + +---------+ + + | Performing | Address | City/State/Zipcode | Phone Number | | Organization | | | | + +---------+ + + | [facility] | | | | + +---------+ + + documented in this encounter Visit Diagnoses + + | Diagnosis | + + | SVT (supraventricular tachycardia) (HCC) - Primary Other specified cardiac | | dysrhythmias | + + | Tobacco abuse Tobacco use disorder | + + documented in this encounter
--- OUTSIDE RECORDS SUMMARY | ~2019-01-04 | XMS | Encounter Summary ---
Demographics + + + | Address | [address] | | | [place] [address] | + + + | Home Phone | | + + + | Preferred Language | Unknown | + + + | Marital Status | Single | + + + | Synagogue Affiliation | Unknown | + + + | Race | Unknown | + + + | Ethnic Group | Unknown | + + + Author + + + | Author | [facility] | | | and [place] | + + + | Organization | [facility] | | | and [place] | + + + | Address | Unknown | + + + | Phone | Unavailable | + + + Support + + +---------+ + | Name | Relationship | Address | Phone | + + +---------+ + | Litzy Huitron | ECON | Unknown | | + + +---------+ + | Skye Giseal | ECON | Unknown | | + + +---------+ + | Eliud Huitron | ECON | Unknown | | + + +---------+ + Care Team Providers + +------+ + | Care Chief Substation Operator Name | Role | Phone | + +------+ + PCP | Unavailable | + +------+ + Encounter Details +--------+ + + + + | Date | Type | Department | Care Team | Description | +--------+ + + + + | 12/22/ | Emergency | [facility] | Arturo Myers | Acute Pharyngitis | | 2005 | | MEDICAL CENTER | [address] | | | | | EMERGENCY CENTER | [place] | | | | | [address] | [place] [address] | | | | | [place], [place] | [phone] | | | | | [address] | | | | | | [phone] | | | +--------+ + + + [...] [place] | | | | | | [address] | | | | | | | | +--------+---------+ + + + | 03/15/ | Office | Cardiology | Arthur Hubbard, | | | 2019 | Visit | | MD [address] | | | | | | [place] | | | | | | [place] [address] | | | | | | [phone] | | | | | | | | +--------+---------+ + + + documented as of this encounter Visit Diagnoses + + | Diagnosis | + + | Acute pharyngitis | + + documented in this encounter"
--- OUTSIDE RECORDS SUMMARY | ~2019-01-04 | XMS | Encounter Summary ---
Demographics + + + | Address | [address] | | | [place] [address] | + + + | Home Phone [...] + + + | Author | [facility] | | | and [place] | + + + | Organization | [facility] | | | and [place] [...] Team Providers + +------+ + | Care Revenue Collector Name | Role | Phone | + +------+ + PCP | Unavailable | + +------+ + Encounter Details +--------+ + + + + | Date | Type | Department | Care Team | Description | +--------+ + + + + | 09/13/ | Emergency | [facility] | Usman Smith | | | 2005 | | MEDICAL CENTER | MD Roman [address] | | | | | EMERGENCY CENTER | [address] [place], [place] | | | | | [address] | [address] | | | | | [place], [place] | [phone] | | | | | [address] | | | | | | [phone] | | | +--------+ + + + [...] [place] | | | | | | [id number] | | | | | | | | +--------+---------+ + + + | 03/15/ | Office | Cardiology | Arthur Hubbard, | | | 2019 | Visit | | MD [address] | | | | | | [place] | | | | | [place] [address] | | | | | | [phone] | | | | | | | | +--------+---------+ + + + documented as of this encounter Visit Diagnoses Not on filedocumented in this encounter"
--- OUTSIDE RECORDS SUMMARY | ~2019-01-04 | XMS | Encounter Summary ---
Demographics + + + | Address | [address] | | | [place] [address] | + + + | Home Phone | | + + + | Preferred Language | Unknown | + + + | Marital Status | Single | + + + | Orthodox Affiliation | Unknown | + + + | Race | Unknown | + + + | Ethnic Group | Unknown | + + + Author + + + | Author | [facility] | | | and [place] | + + + | Organization | [facility] | | | and [place] [...] Team Providers + +------+ + | Care Teacher'S Assistant Name | Role | Phone | + +------+ + PCP | Unavailable | + +------+ + Encounter Details +--------+ + + + + | Date | Type | Department | Care Team | Description | +--------+ + + + + | 10/23/ | Emergency | [facility] | Katherine Robles, | Unspecified Asthma | | 2005 | | MEDICAL CENTER | [place] [address] | | | | | EMERGENCY CENTER | [place] [address] | | | | | [address] | [phone] | | | | | [place], [place] | | | | | | [address] | | | | | | [phone] | | | +--------+ + + + [...] [place] | | | | | | [address] | | | | | | | | +--------+---------+ + + + | 03/15/ | Office | Cardiology | Arthur Hubbard, | | | 2019 | Visit | | MD [address] | | | | | | [place], | | | | | | [place] [address] | | | | | | [phone] | | | | | | | | +--------+---------+ + + + documented as of this encounter Visit Diagnoses + + | Diagnosis | + + | Unspecified asthma(493.90) Unspecified asthma | + + documented in this encounter"
--- OUTSIDE RECORDS SUMMARY | ~2019-01-04 | XMS | Encounter Summary ---
Demographics + + + | Address | [address] | | | [place] [address] | + + + | Home Phone | | + + + | Preferred Language | Unknown | + + + | Marital Status | Single | + + + | Worship Affiliation | Unknown | + + + | Race | Unknown | + + + | Ethnic Group | Unknown | + + + Author + + + | Author | [facility] | | | and [place] | + + + | Organization | [facility] | | | and [...] Providers + +------+ + | Care Revenue Cycle Administrator Name | Role | Phone | + +------+ + PCP | Unavailable | + +------+ + Encounter Details +--------+ + + + + | Date | Type | Department | Care Team | Description | +--------+ + + + + | 09/13/ | Emergency | [facility] | Usman Smith | | | 2005 | | MEDICAL CENTER | MD [address] | | | | | EMERGENCY CENTER | [address] [place], [place] | | | | | [address] | [address] | | | | | [place], [place] | [phone] | | | | | [address] | | | | | | [phone] | | | +--------+ + + + [...] [place] | | | | | | [id number] | | | | | | | | +--------+---------+ + + + | 03/15/ | Office | Cardiology | Arthur Hubbard, | | | 2019 | Visit | | MD [address] | | | | | | [place] | | | | | [place] [address] | | | | | | [phone] | | | | | | | | +--------+---------+ + + + documented as of this encounter Visit Diagnoses Not on filedocumented in this encounter"
--- OUTSIDE RECORDS SUMMARY | ~2019-01-04 | XMS | Encounter Summary ---
Demographics + + + | Address | [address] | | | [place] [address] | + + + | Home Phone | | + + + | Preferred Language | Unknown | + + + | Marital Status | Single | + + + | Adventist Affiliation | Unknown | + + + | Race | Unknown | + + + | Ethnic Group | Unknown | + + + Author + + + | Author | [facility] | | | and [place] | + + + | Organization | [facility] | | | and [place] [...] Team Providers + +------+ + | Care Crayon Sawyer Name | Role | Phone | + +------+ + PCP | Unavailable | + +------+ + Encounter Details +--------+ + + + + | Date | Type | Department | Care Team | Description | +--------+ + + + + | 10/23/ | Emergency | [facility] | Katherine Robles, | Unspecified Asthma | | 2005 | | MEDICAL CENTER | [place] [address] | | | | | EMERGENCY CENTER | [place] [address] | | | | | [address] | [phone] | | | | | [place], [place] | | | | | | [address] | | | | | | [phone] | | | +--------+ + + + [...] [place] | | | | | | [address] | | | | | | | | +--------+---------+ + + + | 03/15/ | Office | Cardiology | Arthur Hubbard, | | | 2019 | Visit | | MD [address] | | | | | | [place], | | | | | | [place] [address] | | | | | | [phone] | | | | | | | | +--------+---------+ + + + documented as of this encounter Visit Diagnoses + + | Diagnosis | + + | Unspecified asthma(493.90) Unspecified asthma | + + documented in this encounter"
--- OUTSIDE RECORDS SUMMARY | ~2019-01-04 | XMS | Encounter Summary ---
Demographics + + + | Address | [address] | | | [place] [address] | + + + | Home Phone | | + + + | Preferred Language | Unknown | + + + | Marital Status | Single | + + + | Adventist Affiliation | Unknown | + + + | Race | Unknown | + + + | Ethnic Group | Unknown | + + + Author + + + | Author | [facility] | | | and [place] | + + + | Organization | [facility] | | | and [place] [...] Team Providers + +------+ + | Care Curator Natural History Museum Name | Role | Phone | + +------+ + PCP | Unavailable | + +------+ + Encounter Details +--------+ + + + + | Date | Type | Department | Care Team | Description | +--------+ + + + + | 12/22/ | Emergency | [facility] | Arturo Myers | Acute Pharyngitis | | 2005 | | MEDICAL CENTER | [address] | | | | | EMERGENCY CENTER | [place] | | | | | [address] | [place] [address] | | | | | [place], [place] | [phone] | | | | | [address] | | | | | | [phone] | | | +--------+ + + + [...] [place] | | | | | | [address] | | | | | | | | +--------+---------+ + + + | 03/15/ | Office | Cardiology | Arthur Hubbard, | | | 2019 | Visit | | MD [address] | | | | | | [place] | | | | | | [place] [address] | | | | | | [phone] | | | | | | | | +--------+---------+ + + + documented as of this encounter Visit Diagnoses + + | Diagnosis | + + | Acute pharyngitis | + + documented in this encounter"
--- OUTSIDE RECORDS SUMMARY | ~2019-01-04 | XMS | Encounter Summary ---
Demographics + + + | Address | [address] | | | [place] [address] | + + + | Home Phone | | + + + | Preferred Language | Unknown | + + + | Marital Status | Single | + + + | Anabaptism Affiliation | Unknown | + + + | Race | Unknown | + + + | Ethnic Group | Unknown | + + + Author + + + | Author | [facility] | | | and [place] | + + + | Organization | [facility] | | | and [...] Team Providers + +------+ + | Care Awning Frame Maker Name | Role | Phone | + +------+ + PCP | Unavailable | + +------+ + Encounter Details +--------+ + + + + | Date | Type | Department | Care Team | Description | +--------+ + + + + | 03/16/ | Hospital | [facility] | Gato Dinero, | | | 1998 | Encounter | MED CTR GENERIC OP | MD | | | | | CONV DEPT [address] | | | | | | [place], | | | | | | [place] [address] | | | | | | [phone] | | | +--------+ + + + [...] [place] | | | | | | [address] | | | | | | | | +--------+---------+ + + + | 03/15/ | Office | Cardiology | Arthur Hubbard, | | | 2019 | Visit | | MD [address] | | | | | | [place] | | | | | | [place] [address] | | | | | | [phone] | | | | | | | | +--------+---------+ + + + documented as of this encounter Visit Diagnoses Not on filedocumented in this encounter"
--- OUTSIDE RECORDS SUMMARY | ~2019-01-04 | XMS | Clinical Summary ---
Demographics + + + | Address | [address] | | | [place] [address] | + + + | Home Phone | | + + + | Preferred Language | Unknown | + + + | Marital Status | Single | + + + | Voodoo Affiliation | Unknown | + + + | Race | Unknown | + + + | Ethnic Group | Unknown | + + + Author + + + | Author | [facility] | | | and [place] | + + + | Organization | [facility] | | [...] Team Providers + +------+ + | Care Printed Circuit Photographer Name | Role | Phone | + +------+ + | Tiffany Lane MD | PCP | | + +------+ + Allergies + + + + + + | Active Allergy | Reactions | Severity | Noted | Comments | | | | | Date | | + + + + + + | Oxycodone | Nausea And Vomiting | | 12/01/19 | | | | | | 19 | | + + + + + + Medications Not on file Active Problems + + + | Problem | Noted Date | + + + | PSVT (paroxysmal supraventricular tachycardia) | 02/23/2007 | + + + | Tobacco abuse | | + + + Encounters +--------+ + + + + | Date | Type | Specialty | Care Team | Description | +--------+ + + + + | 01/04/ | Telephone | Cardiology | Celine Giraldo, | Irregular Heart Beat | | 2018 | | | RN | | +--------+ + + + + | 11/30/ | Office | Cardiology | Arthur Hubbard, | SVT | | 2018 | Visit | | MD | (supraventricular | | | | | | tachycardia) (HCC) | | | | | | (Primary Dx); | | | | | | Tobacco abuse | +--------+ + + + + from Last 3 Months Family History + + +------+ + | Medical History | Relation | Name | Comments | + + +------+ + | Heart surgery | Father | | | + + +------+ + | Heart transplant | Father | | | + + +------+ + | Alzheimer's disease | Maternal | | | | | Grandfath | | | | | er | | | + + +------+ + | COPD | Maternal | | | | | Grandmoth | | | | | er | | | + + +------+ + | Heart disease | Maternal | | | | | Grandmoth | | | | | er | | | + + +------+ + | PSVT | Mother | | | + + +------+ + | Heart attack | Paternal | | | | | Grandfath | | | | | er | | | + + +------+ + | Heart attack | Paternal | | | | | Grandmoth | | | | | er | | | + + +------+ + + +------+ + + | Relation | Name | Status | Comments | + +------+ + + | Brother | | Alive | | + +------+ + + | Father | | | | | | | (Age | | | | | 52) | | + +------+ + + | Maternal Grandfather | | | | + +------+ + + | Maternal Grandmother | | | | + +------+ + + | Mother | | Alive | | + +------+ + + | Paternal Grandfather | | | | + +------+ + + | Paternal Grandmother | | | | + +------+ + + | Son | | Alive | | + +------+ + + | Son | | Alive | | + +------+ + + | Son | | Alive | | + +------+ + + | Son | | Alive | | + +------+ + + | Son | | Other | surrogacy, adopted by others | + +------+ + + Social History + + + [...] | + + Last Filed Vital Signs + + + [...] | | + + + + + Plan of Treatment +--------+---------+ + + + [...] [place] | | | | | | [address] | | | | | | | | +--------+---------+ + + + | 03/15/ | Office | Cardiology | Arthur Hubbard, | | | 2019 | Visit | | MD [address] | | | | | | [place], | | | | | | [place] [address] | | | | | | [phone] | | | | | | | | +--------+---------+ + + + + + + + + | Health Maintenance | Due Date | Last Done | Comments | + + + + + | Vaccine: | | | | | Pneumococcal 19-64 | 7 | | | | (1 of 1 - PPSV23) | | | | + + + [...] | | + + + + + Procedures + +--------+ + + + | [...] | | | | PDT | tachycardia) ([facility]) | results section. | + +--------+ + + + from Last 3 Months Results ECG 12 lead (11/30/2018 9:54 AM [...] | | | | | by [facility] Darden Read Only, | | | | | | ICA Delgado ([id number]), | | | | | | digital editor Jeremias Coy | | | | | | ([id number]) on 11/30/2018 | | | | | [...] | | | + +---------+ + + from Last 3 Months Insurance + +--------+ +--------+ [...] | [employer] | [employer] | [id number] | | [phone] | | Medica | [...] + +--------+ +--------+ + + | Jaqueline Huitron Y | Person | Self | 08/01/ | | 1820 | | | al/Fam | | 1981 | [phone] | [place] [address] | | | pinky | | | 6 (Home) | | + +--------+ +--------+ + + Advance Directives + + + + + | Type | Date Recorded | Patient | Explanation | | | | Career Coach | | + + + + + | Power of | | | | | Industrial Pharmacist | | | | + + + + + | Advance | | | | | Directive | | | | + + + + +
--- OUTSIDE RECORDS SUMMARY | ~2019-01-04 | XMS | Encounter Summary ---
Demographics + + + | Address | [address] | | | [place] [address] | + + + | Home Phone | | + + + | Preferred Language | Unknown | + + + | Marital Status | Single | + + + | Oriental Orthodox Affiliation | Unknown | + + + | Race | Unknown | + + + | Ethnic Group | Unknown | + + + Author + + + | Author | [facility] | | | and [place] | + + + | Organization | [facility] | | | and [...] Team Providers + +------+ + | Care Elephant Tamer Name | Role | Phone | + +------+ + PCP | Unavailable | + +------+ + Encounter Details +--------+ + + + + | Date | Type | Department | Care Team | Description | +--------+ + + + + | 09/25/ | Emergency | [facility] | JoanneJanis Deni, | | | 2005 | | MEDICAL CENTER | [address] | | | | | EMERGENCY CENTER | [place], [place] | | | | | [address] | [address] | | | | | [place], [place] | | | | | | [address] | | | | | | [phone] | | | +--------+ + + + [...] [place] | | | | | | [address] | | | | | | | | +--------+---------+ + + + | 03/15/ | Office | Cardiology | Arthur Hubbard, | | | 2019 | Visit | | MD [address] | | | | | | [place] | | | | | | [place] [address] | | | | | | [phone] | | | | | | | | +--------+---------+ + + + documented as of this encounter Visit Diagnoses Not on filedocumented in this encounter"
--- OUTSIDE RECORDS SUMMARY | ~2019-01-04 | XMS | Encounter Summary ---
Demographics + + + | Address | [address] | | | [place] [address] | + + + | Home Phone | | + + + | Preferred Language | Unknown | + + + | Marital Status | Single | + + + | Samaritan Affiliation | Unknown | + + + | Race | Unknown | + + + | Ethnic Group | Unknown | + + + Author + + + | Author | [facility] | | | and [place] | + + + | Organization | [facility] | | | and [...] Team Providers + +------+ + | Care Press Writer Name | Role | Phone | + [...] | | tachycardia) | [place] | [place], [place] | | | | | (HCC) | [place], [place] | [address] | | | | | | [address] | Phone: | | | | | | Phone: | [phone] | | | | | | [phone] | Fax: | | | | | | Fax: | [phone] | | | | | | [phone] | | + + + + + [...] | | | | | ular | [place] | [address] | | | | | tachycardia | [address] [address] | [place] | | | | | (HCC) | [place], | [place], [place] | | | | | Supraventric | [place] [address] | [address] Phone: | | | | | ular | Phone: | [phone] | | | | | tachycardia | [phone] | Fax: | | | | | (HCC) | Fax: | [phone] | | | | | Procedures | [phone] | | | | | | Consult | | | + +--------+ + + + + Encounter Details +--------+---------+ + + + | Date | Type | Department | Care Team | Description | +--------+---------+ + + + | 11/30/ | Office | [facility] | Arthur Hubbard, | SVT | | 2019 | Visit | CARDIOLOGY ASAEL | [address] | (supraventricular | | | | [address] | [place], | tachycardia) (HCC) | | | | [address] | [place] [address] | (Primary Dx); | | | | [address] | [phone] | Tobacco abuse | | | | [phone] | | | +--------+---------+ + + + [...] fro m the original. Subjective: Patient ID: Jaqueline Huitron is a 38 y.o. female. HPI Patient's medications, allergies, past medical, surgical, social and family histories were obtained and reviewed as appropriate. Jaqueline, accompanied by her mother (who also has a history of PSVT) came to the office today to establish herself with [facility]. She developed PSVT in 2007, and has been treated with adenosine multiple times since then, 7 times in the last 2 years since she moved back to [place], and 5 or 6 times prior to that, when she lived in [place]. She saw a lan/wan engineer in [place] in 2000 01-2012 before she came to this area. She had b een on metoprolol 25 mg daily, but was unable to tolerate higher doses due to hypotension. She was seen in the [facility] ER 10/14/2017 for another episode, and her [...] is the most effective vagal maneuver. In [facility], EPS with a radiofrequency ablation was discussed, [...] History: Diagnosis Date PSVT (paroxysmal supraventricular tachycardia) ([facility]) 2007 Tobacco abuse Past Surgical History: Procedure [...] began, with O2 sat 88% in the [place] ER. She has a remote history of [...] hematuria, urinary urgency, hesitancy . No active Packaging Clerk problems. HEMATOLOGY/ONCOLOGY: No h/o bleeding disorders, DVT, [...] orders for this visit: SVT (supraventricular tachycardia) ([facility]) - ECG 12 lead PSVT (paroxysmal supraventricular tachycardia) ([facility]) Tobacco abuse Plan: Refer for an EP [...] [place] | | | | | | [id number] | | | | | | | | +--------+---------+ + + + | 03/15/ | Office | Cardiology | Arthur Hubbard, | | | 2019 | Visit | | MD [address] | | | | | | [place] | | | | | [place] [address] | | | | | | [phone] | | | | | | | | +--------+---------+ + + + + + +--------+ + + | Name | Type | Priori | Associated Diagnoses | Order Schedule | | | | ty | | | + + +--------+ + + | Ambulatory Referral | Outpatient | Routin | SVT | Ordered: 11/30/2018 | | to [facility] EP | Referral | e | (supraventricular [...] | | | | PDT | tachycardia) ([facility]) | results section. | + [...] | | | | | by [facility] [place] Read Only, | | | | | | ICA Baltazar ([id number]), | | | | | | order editor Jeremias Coy | | | | | | ([id number]) on 11/30/2018 | | | | | [...]
--- OUTSIDE RECORDS SUMMARY | ~2019-01-04 | XMS | Clinical Summary ---
Demographics + + + | Address | [address] | | | [place] [address] | + + + | Home Phone | | + + + | Preferred Language | Unknown | + + + | Marital Status | Single | + + + | Alevism Affiliation | Unknown | + + + | Race | Unknown | + + + | Ethnic Group | Unknown | + + + Author + + + | Author | [facility] | | | and [place] | + + + | Organization | [facility] | | | and [place] [...] Team Providers + +------+ + | Care Zinc Plater Name | Role | Phone | + [...] [place] | | | | | | [address] | | | | | | | | +--------+---------+ + + + | 03/15/ | Office | Cardiology | Arthur Hubbard, | | | 2019 | Visit | | MD [address] | | | | | | [place], | | | | | | [place] [address] | | | | | | [phone] | | | | | | | [...] | | | | PDT | tachycardia) ([facility]) | results section. | + +--------+ + [...] | | | | | by [facility] [place] Read Only, | | | | | | ICA Delgado ([id number]), | | | | | | electronic news gathering editor Jeremias Coy | | | | [...] | [employer] | MOD[employer] | [id number] | | [phone] | | Medica | [...] | 1981 | [phone] | [place] [address] | | | pinky | | | 6 (Home) | | + +--------+ +--------+ + + Advance Directives + + + + + | Type | Date Recorded | Patient | Explanation | | | | Sand Control Worker | | + + + + + | Power of | | | | | Shipping Track Supervisor | | | | + + + + + | Advance | | | | | Directive | | | | + + + + +
[~2019-01-04 14:52] MED LIST changes: +PREDNISONE20 MG PO; +VERAPAMIL HCL80 MG PO
--- NOTE | 2019-01-04 20:21 | EKG ---
[facility] [address] [facility] [place] [address] Signed Normal sinus rhythm Normal ECG When compared with ECG of 28-NOV-2018 05:28, Nonspecific T wave abnormality no longer evident in Anterior leads Confirmed by SHERITA GIL MD ([id number]) on 01/04/2019 8:20:58 PM Electronically Signed By: SHERITA GIL MD 01/04/192020 PATIENT NAME: JAMEY ORDONEZ Electrocardiogram DATE OF : 80 PHYSICIAN: SHERITA GIL MD REPORT #: [id number] REPORT IS CONFIDENTIAL AND NOT TO BE RELEASED WITHOUT AUTHORIZATION
== END 2019-01-04 16:03 | disposition left against medical advice (07) ==
LOC: ED 14:52
DX: R00.2 Palpitations (principal); F17.200 Nicotine dependence, unspecified, uncomplicated; Z88.5 Allergy status to narcotic agent; Z91.018 Allergy to other foods
CPT/HCPCS: 71045; 80053; 84439; 84443; 84484; 85025; 93005; 93010; 99285-25; 99406

== ENCOUNTER 2021-03-31 19:56 | Emergency (ER) | payer OTHER ==
[~2021-03-31] VITALS: Ht 167.6 cm; Wt 102.1 kg
--- OUTSIDE RECORDS SUMMARY | 2021-03-31 20:04 | XMS ---
PreManage Notification: JAMEY ORDONEZ Security Heavy Equipment Operating Engineer Events No recent Security Events currently on file CRITERIA MET - Group Notification CARE PROVIDERS [facility]: Unknown [place] [facility] Clinic/Center: Primary Care 11/29/2018-[facility] PHONE: [phone] [facility] Internal Medicine 09/28/2018-Current PHONE: [phone] [place] has no Care Guidelines for this patient. E.D. VISIT COUNT (12 MO.) 1 NAIMA Darden TOTAL 1 NOTE: Visits indicate total known visits. ED/UCC VISIT TRACKING (12 MO.) 03/31/2021 19:56 [place] Cook [place] TYPE: Emergency COMPLAINT: - RAPID HEART RATE INPATIENT VISIT TRACKING (12 MO.) No inpatient visits to display in this time frame [id number]
--- NOTE | 2021-04-01 13:49 | EKG ---
[facility] [address] [facility] [address] [place] [address] Signed Sinus tachycardia Nonspecific ST and T wave abnormality Abnormal ECG When compared with ECG of 04-JAN-2019 15:05, Nonspecific T wave abnormality now evident in Anterior leads Confirmed by SHERITA GIL MD ([id number]) on 04/01/2021 1:49:13 PM Electronically Signed By: SHERITA GIL MD 04/01/21 1349 PATIENT NAME: [id number] Electrocardiogram DATE OF : 80 PHYSICIAN: SHERITA GIL MD REPORT #: [id number] REPORT IS CONFIDENTIAL AND NOT TO BE RELEASED WITHOUT AUTHORIZATION
== END 2021-03-31 22:40 | disposition home or self-care (01) ==
LOC: ED 19:56
DX: R00.2 Palpitations (principal); F17.200 Nicotine dependence, unspecified, uncomplicated; Z88.5 Allergy status to narcotic agent; Z91.018 Allergy to other foods
CPT/HCPCS: 36415; 71046; 80048; 84443; 84484; 84703; 85025; 85379; 93005; 93010; 99285-25